=== PATIENT | female | born 1960 | race Caucasian/White ===

== ENCOUNTER 2017-11-30 13:42 | Emergency (ER) | END 2017-11-30 20:18 | disposition home or self-care (01) ==

== ENCOUNTER 2018-10-09 10:29 | Day surgery (SDC) | payer OTHER ==
[~2018-10-09] VITALS: Ht 157.5 cm; Wt 99.8 kg
[2018-10-09] VITALS (10 sets, daily range): BP systolic 124–161; BP diastolic 66–98; PULSE 68–87; RESP 16–19; Ht 157.5 cm; Wt 99.8 kg
[~2018-10-09 10:29] MED LIST: AMLO5TAB4 PO; ASPI-817 PO; IBUP-1542 PO; IRBE150T21 PO; LEVO25TA6 PO; LEVO50TA71 PO; LOSA50TA14 PO; MULTI PO; OXYB10TA6 PO; SOD CHLORIDE 0.9% 1,000 ML IV SCH
[2018-10-09] MEDS ORDERED: IOHEXOL 300MG/ML 30 ML BTL ONE (13:20)
--- NOTE | 2018-10-09 15:09 | PREAC ---
Date/Time of Note Date/Time of Note DATE: 10/09/18 TIME: 15:08 Anesthesia Eval and Record Evaluation Time Pre-Procedure Interview DATE: 10/09/18 TIME: 15:08 Age 58 Sex female NPO: 8 hrs Preoperative diagnosis epigastric pain, screening Planned procedure EGD, colonoscopy Past Medical History Past Medical History: Includes Cardio: HTN, Dyslipidemia Endo: Hypothyroid GI: Morbid obesity Surgery & Anesthesia Issues No known issue Meds Anticoagulation: No Beta Maria De Jesus within 24 hr: No Reason Beta Maria De Jesus not given: Pt. not on B-Maria De Jesus Reported Medications Multivitamins* (Theragran*) 1 Tab Tab, 1 TAB PO DAILY, TAB 10/09/18 Irbesartan* (Irbesartan*) 150 Mg Tablet, 150 MG PO DAILY, TAB 10/09/18 Levothyroxine Sodium* (Levoxyl*) 50 Mcg Tablet, 50 MCG PO BEFORE BREAKFAST, #30 TAB 10/09/18 Discontinued Reported Medications Oxybutynin Chloride* (Ditropan* XL) 10 Mg Tab.er.24, 10 MG PO DAILY, TAB.SA 11/30/17 Losartan Potassium* (Losartan Potassium*) 50 Mg Tablet, 50 MG PO DAILY, TAB 11/30/17 Aspirin* (Aspirin* EC) 81 Mg Tablet.dr, 81 MG PO DAILY, TAB 11/30/17 Amlodipine Besylate* (Norvasc*) 5 Mg Tablet, 5 MG PO DAILY, TAB 11/30/17 Levothyroxine Sodium* (Levothyroxine Sodium*) 25 Mcg Tablet, 25 MCG PO BEFORE BREAKFAST, #30 TAB 11/30/17 Discontinued Scripts Ibuprofen* (Motrin*) 600 Mg Tab, 600 MG PO Q6H PRN for PAIN, #30 TAB Prov:ABRAHAM GRIMM MD 11/30/17 Current Medications Sodium Chloride 1,000 ml @ 20 mls/hr Q24H IV Last administered on 10/09/18at 12:03; Admin Dose 20 MLS/HR; Start 10/09/18 at 06:00; Stop 10/09/18 at 23:00 Meds reviewed: Yes Allergies Coded Allergies: Adhesive, Silicone (Verified Allergy, Mild, ITCHING,REDNESS, 10/09/18) Allergies Reviewed: Yes Labs/Studies Labs Reviewed: Reviewed by anesthesiologist test: N/A Studies: ECG, CXR Pre-procedure Exam Last vitals Vital Signs Date Temp Pulse Resp B/P (MAP) Pulse Ox O2 O2 Flow FiO2 Time Delivery Rate 10/09/18 98.3 83 16 126/95 96 11:52 (105) Airway: Adequate mouth opening, Adequate thyromental dist Mallampati: Mallampati II Teeth: Normal Lung: Normal Heart: Normal ASA Physical Status ASA physical status: 3 Emergency: None Planned Anesthetic General/MAC: Mask Planned Pain Management Parenteral pain med Pre-operative Attestations Prior to commencing anesthesia and surgery, the patient was re-evaluated, there was verification of: *The patient's identity *The results of appropriate recent lab work and preoperative vital signs *The above evaluation not changing prior to induction *Anesthetic plan, risk benefits, alternative and complications discussed with patient/family; questions answered; patient/family understands, accepts and wis hes to proceed. JULIO SON MD Oct 09, 2018 15:09
[2018-10-09] MEDS ORDERED: PROPOFOL 20 ML ONE ×4 (15:16→15:49)
[2018-10-09] MEDS ORDERED: LIDOCAINE 2% (SDV) 5 ML INJ ONE (15:16)
[2018-10-09] MEDS ORDERED: MIDAZOLAM 1 MG/ML 2 ML INJ ONE (15:16)
[2018-10-09] MEDS ORDERED: FAMOTIDINE 20 MG INJ ONE (15:37)
[2018-10-09] MEDS ORDERED: ONDANSETRON 4 MG INJ ONE (15:37)
--- NOTE | 2018-10-09 16:07 | PAC ---
Date/Time of Note Date/Time of Note DATE: 10/09/18 TIME: 16:05 Post-Anesthesia Notes Post-Anesthesia Note Last documented vital signs Vital Signs Date Temp Pulse Resp B/P (MAP) Pulse Ox O2 O2 Flow FiO2 Time Delivery Rate 10/09/18 98.3 83 16 126/95 96 11:52 (105) Activity: WNL Respiratory function: WNL Cardiovascular function: WNL Mental status: Baseline Pain reasonably controlled: Yes Hydration appropriate: Yes Nausea/Vomiting absent: Yes Comments BP: 136/70 HR: 83 RR: 15 T: 99.4 SaO2: 99% room air JULIO SON MD Oct 09, 2018 16:07
--- NOTE | 2018-10-09 16:11 | OPPN ---
Date/Time of Note Date/Time of Note DATE: 10/09/18 TIME: 16:05 Operative Report Preoperative Diagnosis epigastric pain incomplete colonoscopy Postoperative Diagnosis gastritis fixed narrow sigmoid colon diverticulosis Operation/Procedure Performed EGD BX COLONOSCOPY Surgeon see signature line practice assistant DR SON Anesthesia: general, MAC Estimated blood loss: none Transfusion Required none Specimen YES Grafts/Implants none Complications none EL FAITH MD Oct 09, 2018 16:11
[2018-10-09] MEDS ORDERED: hydrALAzine 20 MG INJ ONE (16:20)
[2018-10-09] MEDS ORDERED: hydrALAzine 20 MG INJ IV PRN (16:30)
[2018-10-09] MEDS ORDERED: DIPHENHYDRAMINE 50 MG INJ IV PRN (16:30)
[2018-10-09] MEDS ORDERED: LABETALOL HCL 20MG INJ IV PRN (16:30)
[2018-10-09] MEDS ORDERED: HYDROmorphONE 1 MG/5 ML IV SYRINGE IV PRN (16:30)
[2018-10-09] MEDS ORDERED: FENTAnyl 50 MCG/ML VIAL IV PRN (16:30)
[2018-10-09] MEDS ORDERED: ONDANSETRON 4 MG INJ IV PRN (16:30)
== END 2018-10-09 17:15 | disposition home or self-care (01) ==
LOC: SDS 10:29 → GIL 10:39 → SDS 17:15
PROVIDERS: ATTEND Internal Medicine
DX: Z12.11 Encounter for screening for malignant neoplasm of colon (principal); K57.30 Diverticulosis of large intestine without perforation or abscess without bleeding; K29.30 Chronic superficial gastritis without bleeding; B96.81 Helicobacter pylori [H. pylori] as the cause of diseases classified elsewhere
CPT/HCPCS: 43239; 45378; 71045; 88305; 88312; J0360; J2250; J2405; Q9967; Z7512; Z7610